=== PATIENT | female | born 1980 | race Caucasian/White ===

== ENCOUNTER 2019-06-06 16:43 | Emergency (ER) | payer OTHER ==
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
[2019-06-06] MEDS ORDERED: Ondansetron 4 MG/2 ML SDV IVPUSH ONE (17:10)
[2019-06-06] MEDS ORDERED: Ketorolac 30 MG/ML SDV IVPUSH SCH (17:15)
[2019-06-06] MEDS ORDERED: Dextrose 5%-0.9% NaCl 1,000 ML IV SCH (17:15)
--- NOTE | 2019-06-06 17:46 | CT ---
CT cervical spine Technique: Multiple axial sections were obtained from above C1 inferiorly through the T1-T2 disc. Reconstructed sagittal and coronal images were reviewed. Comparison: No prior CT cervical spine study is available, previous cervical spine plain film exam of 10/06/12 is available. Findings: Fairly severe disc space narrowing is noted C5-C6. Posterior osteophytes are noted at C5-C6 as well as degenerative spurring on both sides of the uncovertebral joints at C5-C6. Lesser disc space narrowing at C4-C5 with smaller posterior osteophytes and minimal spurring within the uncovertebral joints at C4-C5. Other disc spaces are maintained. Vertebral body heights are maintained. Mild bilateral neural foraminal stenosis is s noted at C5-C6. Other neural foramina are patent. No central canal stenosis is seen. No fracture is appreciated. No abnormal subluxation is seen. Impression: 1. Mild degenerative change. No acute abnormality is appreciated on CT study of the cervical spine. Diagnostic code #2
--- NOTE | 2019-06-06 17:50 | CT ---
Head CT Technique: Multiple axial sections through the brain were obtained. Intravenous contrast was not utilized. Comparison: No prior intracranial imaging is available. Findings: Ventricles along with basal cisterns and sulci over the convexities appear within normal limits for the patient's age. No abnormal parenchymal densities are seen. No evidence of intracranial hemorrhage. No midline shift or mass effect is seen. Bone window settings were reviewed which showed the visualized mastoid sinuses and paranasal sinuses to appear clear. No acute calvarial abnormality is seen. Impression: 1. Nothing acute is appreciated on noncontrast head CT exam. Diagnostic code #1
--- NOTE | 2019-06-06 17:52 | CT ---
CT thoracic spine Technique: Multiple axial sections through the thoracic spine were obtained. Reconstructed sagittal and coronal images were reviewed. Findings: Vertebral body heights and disc spaces are preserved. Very minimal endplate osteophytes are seen within the mid thoracic spine. No fracture is seen. No abnormal subluxation is noted. No bony central or bony neural foraminal stenosis is seen. No traumatic disc herniation is identified. Impression: 1. Minimal degenerative change. Nothing acute is seen on CT study of the thoracic spine. Diagnostic code #1
--- NOTE | 2019-06-06 17:55 | CT ---
CT lumbar spine Technique: Multiple axial sections through the lumbar spine were obtained. Reconstructed sagittal and coronal images were reviewed. Comparison: No prior lumbar spine imaging. Findings: Mild retrolisthesis is seen at L4-L5 with slight posterior spurring into the right neural foramina. Vacuum disc phenomena is noted within the L4-L5 disc. Posterior disc space narrowing is noted at L2-3 and L3-L4 as well as L4-L5. Detached transverse process of L1 is noted on the right side. 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 No vertebral body fracture or posterior arch fracture is seen. No disc herniation is seen. No abnormal subluxation is seen. Minimal scoliosis is noted. Impression: 1. Mild degenerative change and minimal scoliosis. Nothing acute is appreciated on CT study of the thoracolumbar spine. Diagnostic code #2
[2019-06-06 18:47] VITALS: BP 118/82; PULSE 63
== END 2019-06-06 18:45 | disposition home or self-care (01) ==
LOC: JD.ED 16:43
DX: S13.9XXA Sprain of joints and ligaments of unspecified parts of neck, initial encounter (principal); S39.012A Strain of muscle, fascia and tendon of lower back, initial encounter; G44.209 Tension-type headache, unspecified, not intractable; F32.9 Major depressive disorder, single episode, unspecified; Z79.899 Other long term (current) drug therapy; V54.5XXA Driver of pick-up truck or van injured in collision with heavy transport vehicle or bus in traffic accident, initial encounter; Y92.410 Unspecified street and highway as the place of occurrence of the external cause
CPT/HCPCS: 70450; 70450-26; 72125; 72125-26; 72128; 72128-26; 72131; 72131-26; 99284-25

== ENCOUNTER 2020-05-18 06:41 | Day surgery (SDC) | payer MEDICAID, OTHER ==
[2020-05-18] MEDS ORDERED: Lidocaine 1%/Sod Bicarbonate in NS 8.4% 1 ML Syringe IDERM PRN (07:00)
[2020-05-18] MEDS ORDERED: Sodium Chloride 0.9% 10 ML Syringe FLUSH PRN (07:00)
[2020-05-18] MEDS: Lactated Ringers 1,000 ML IV SCH ×2 (07:02→09:46)
[2020-05-18] MEDS ORDERED: Lidocaine 1% with EPINEPHrine 1:100,000 20 ML MDV ONE (07:09)
[2020-05-18] MEDS ORDERED: Sodium Chloride 0.9% 50 ML SDV ONE (07:09)
--- NOTE | 2020-05-18 07:30 | PCM.PREANE ---
Preanesthetic Assessment - Procedure Proposed Procedure: total vaginal hysterectomy with bilateral saloingectomy - Anesthesia/Transfusion/Family Hx Anesthesia History: No Prior Anesthesia Family History of Anesthesia Reaction: No Transfusion History: No Prior Transfusion(s) Intubation History: Unknown - Review of Systems General: No Symptoms Pulmonary: Other (rescue inhaler for bronchitis with sinuses - used inhaler last week ) Cardiovascular: No Symptoms Gastrointestinal: No Symptoms Neurological: Paresthesia (forearms numbness ), Other (migraine history ) Other: Reports: Depression, Anxiety - Physical Assessment NPO Status Date: 05/17/20 NPO Status Time: 22:00 Vital Signs: Last Vital Signs Temp 36.1 C 05/18/20 06:45 Pulse 64 05/18/20 06:45 Resp 16 05/18/20 06:45 BP 115/76 05/18/20 06:45 Pulse Ox 96 05/18/20 06:45 Height: 1.7 m Weight: 83.461 kg ASA Class: 2 Mental Status: Alert & Oriented x3 Airway Class: Mallampati = 1 Dentition: Reports: Normal Dentition Thyro-Mental Finger Breadths: 3 Mouth Opening Finger Breadths: 4 ROM/Head Extension: Full Lungs: Clear to Auscultation, Normal Respiratory Effort Cardiovascular: Regular Rate (4), Regular Rhythm - Lab Values: Laboratory Last Values WBC 5.17 K/mm3 (3.98-10.04) 05/13/20 11:25 RBC 4.53 M/mm3 (3.98-5.22) 05/13/20 11:25 Hgb 14.0 gm/dl (11.2-15.7) 05/13/20 11:25 Hct 42.9 % (34.1-44.9) 05/13/20 11:25 MCV 94.7 fl (79.4-94.8) 05/13/20 11:25 MCH 30.9 pg (25.6-32.2) 05/13/20 11:25 MCHC 32.6 g/dl (32.2-35.5) 05/13/20 11:25 RDW Std Deviation 43.7 fL (36.4-46.3) 05/13/20 11:25 Plt Count 287 K/mm3 (182-369) 05/13/20 11:25 MPV 9.4 fl (9.4-12.3) 05/13/20 11:25 Neut % (Auto) 56.8 % (34.0-71.1) 05/13/20 11:25 Lymph % (Auto) 30.8 % (19.3-51.7) 05/13/20 11:25 [place] % (Auto) 9.1 % (4.7-12.5) 05/13/20 11:25 Eos % (Auto) 2.7 (0.7-5.8) 05/13/20 11:25 Baso % (Auto) 0.6 % (0.1-1.2) 05/13/20 11:25 Neut # (Auto) 2.94 K/mm3 (1.56-6.13) 05/13/20 11:25 Lymph # (Auto) 1.59 K/mm3 (1.18-3.74) 05/13/20 11:25 [place] # (Auto) 0.47 K/mm3 (0.24-0.36) H 05/13/20 11:25 Eos # (Auto) 0.14 K/mm3 (0.04-0.36) 05/13/20 11:25 Baso # (Auto) 0.03 K/mm3 (0.01-0.08) 05/13/20 11:25 Creatinine 0.9 mg/dL (0.55-1.02) 05/13/20 11:25 Est Cr Clr Drug Dosing TNP 05/13/20 11:25 Estimated GFR (MDRD) > 60 mL/min (>60) 05/13/20 11:25 Urine Color Yellow (Yellow) 05/13/20 11:25 Urine Appearance Clear (Clear) 05/13/20 11:25 Urine pH 6.0 (5.0-8.0) 05/13/20 11:25 Ur Specific [place] > or = 1.030 (1.005-1.030) 05/13/20 11:25 Urine Protein Negative (Negative) 05/13/20 11:25 Urine Glucose (UA) Negative (Negative) 05/13/20 11:25 Urine Ketones Negative (Negative) 05/13/20 11:25 Urine Occult Blood Negative (Negative) 05/13/20 11:25 Urine Nitrite Negative (Negative) 05/13/20 11:25 Urine Bilirubin Negative (Negative) 05/13/20 11:25 Urine Urobilinogen 0.2 (0.2-1.0) 05/13/20 11:25 Ur Leukocyte Esterase Negative (Negative) 05/13/20 11:25 Urine RBC 0-5 /hpf (0-5) 05/13/20 11:25 Urine WBC 0-5 /hpf (0-5) 05/13/20 11:25 Ur Squamous Epith Cells 0-5 /hpf (0-5) 05/13/20 11:25 Urine Bacteria Few /hpf (FEW) 05/13/20 11:25 Urine Mucus Few /hpf (FEW) 05/13/20 11:25 Urine HCG, Qual Negative (NEGATIVE) 05/13/20 11:25 COVID-19 (GÉNESIS) Negative (NEGATIVE) 05/18/20 06:43 - Allergies Allergies/Adverse Reactions: Allergies Allergy/AdvReac Type Severity Reaction Status Date / Time acetaminophen [From Percocet] Allergy Itching Verified 05/18/20 07:13 oxycodone [From Percocet] Allergy Itching Verified 05/18/20 07:13 - Blood Blood Available: No - Anesthesia Plan Pre-Op Medication Ordered: None - Acknowledgements Anesthesia Type Planned: General Anesthesia Pt an Appropriate Candidate for the Planned Anesthesia: Yes Alternatives and Risks of Anesthesia Discussed w Pt/Guardian: Yes Pt/Guardian Understands and Agrees with Anesthesia Plan: Yes PreAnesthesia Questionnaire HEENT History: Reports: Sinusitis Other HEENT History: TMJ Cardiovascular History: Other Cardiovascular History: palpitations Other Genitourinary History: dysuria, genital herpes 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 OB/BYN History: dysmenorrhea, abnormal uterine bleeding, menorrhagia Musculoskeletal History: Reports: Back Pain, Chronic, Neck Pain, Chronic Neurological History: Reports: Migraines Psychiatric History: Reports: Anxiety, Depression Other Endocrine/Metabolic History: abnormal TSH Other Dermatologic History: atopic dermatitis - SUBSTANCE USE Smoking Status *Q: Never Smoker Tobacco Use Within Last Twelve Months: No Recreational Drug Use History: No - HOME MEDS Home Medications: Home Meds Albuterol Sulfate [Albuterol Sulfate Hfa] 1 puff IH ASDIRECTED PRN 05/14/20 [History] Doxycycline [Vibramycin] 100 mg PO BID 05/14/20 [History] Gabapentin [Neurontin] 300 mg PO DAILY 05/14/20 [History] Ipratropium [place] 2 spray NASBOTH TID 05/14/20 [History] Sertraline [Zoloft] 200 mg PO DAILY 05/14/20 [History] Topiramate [Trokendi Xr] 50 mg PO DAILY 05/14/20 [History] clonazePAM [Clonazepam] 1.5 mg PO DAILY 05/14/20 [History] - CURRENT (IN HOUSE) MEDS Current Meds: Current Medications Lactated Ringer's (Ringers, Lactated) 1,000 mls @ 125 mls/hr IV ASDIRECTED TRAY Stop: 05/18/20 23:00 Last Admin: 05/18/20 07:02 Dose: 125 mls/hr Documented by: Lidocaine/Sodium Bicarbonate (Buffered Lidocaine 1% In Ns 8.4%) 0.25 ml IDERM ONETIME PRN PRN Reason: Prior to IV Start Stop: 05/18/20 18:00 Last Admin: 05/18/20 07:02 Dose: 0.25 ml Documented by: Sodium Chloride (Saline Flush) 10 ml FLUSH ASDIRECTED PRN PRN Reason: Keep Vein Open Stop: 05/18/20 18:00 Discontinued Medications Lidocaine/Epinephrine (Xylocaine 1% With Epinephrine 1:100,000) Confirm Administered Dose 20 ml .ROUTE .STK-MED ONE Stop: 05/18/20 07:10 Sodium Chloride (Normal Saline) Confirm Administered Dose 50 ml .ROUTE .STK-MED ONE Stop: 05/18/20 07:10
[2020-05-18] MEDS ORDERED: fentaNYL 100 MCG/2 ML SDV IVPUSH PRN (07:32)
[2020-05-18] MEDS ORDERED: Scopolamine 1.5 MG Transdermal Patch TRDERM ONE (07:32)
[2020-05-18] MEDS ORDERED: Ondansetron 4 MG/2 ML SDV IVPUSH PRN (07:32)
[2020-05-18] MEDS ORDERED: Midazolam 1 MG/ML 2 ML SDV ONE (07:38)
[2020-05-18] MEDS ORDERED: Propofol 200 MG/20 ML SDV ONE (07:38)
[2020-05-18] MEDS ORDERED: fentaNYL 250 MCG/5 ML SDV ONE (07:39)
[2020-05-18] MEDS ORDERED: Lidocaine 1% 4 ML ONE (07:40)
[2020-05-18] MEDS ORDERED: Rocuronium 50 MG/5 ML Vial ONE (07:41)
[2020-05-18] MEDS ORDERED: ceFAZolin 1 GM Vial ONE (08:09)
[2020-05-18] MEDS ORDERED: HYDROmorphone 0.5 MG/0.5 ML Syringe ONE (08:11)
[2020-05-18] MEDS ORDERED: Ketamine 500 mg/10 ML MDV ONE ×2 (08:12→08:13)
[2020-05-18] MEDS ORDERED: Lactated Ringers 1,000 ML ONE (08:21)
[2020-05-18] MEDS ORDERED: Albuterol 6.7 GM Inhaler INH ONE (08:36)
[2020-05-18] MEDS ORDERED: Dexamethasone 4 MG/ML 5 ML MDV ONE (08:41)
[2020-05-18] MEDS ORDERED: Ondansetron 4 MG/2 ML SDV ONE (08:41)
[2020-05-18] MEDS ORDERED: Ketorolac 15 MG/ML SDV ONE (08:55)
[2020-05-18] MEDS ORDERED: Albuterol 6.7 GM Inhaler INH PRN (09:03)
[2020-05-18] MEDS ORDERED: Ibuprofen 600 MG Tab PO PRN (09:07)
--- NOTE | 2020-05-18 09:12 | PCM.OPNOTE ---
- General Post-Op/Procedure Note Date of Surgery/Procedure: 05/18/20 Operative Procedure(s): Total vaginal hysterectomy with bilateral salpingectomy Findings: Uterus, fallopian tubes and ovaries appeared to be generally within normal limits. Pre Op Diagnosis: 1. Menorrhagia. 2. Dysmenorrhea. 3. Uterine fibroid Post-Op Diagnosis: Same Anesthesia Technique: General ET Tube Other Anesthesia Type: Lidocaine 1% with cc local Primary Surgeon: Humphrey Spencer Secondary Surgeon: Shaun Ramey Anesthesia Provider: Any Benitez Drywall Hanger Helper: Anali Tejada Reason Drywall Hanger Helper Was Necessary: Retraction, assistance, patient safety, quality of care. Pathology: Uterus, tubes in one specimen container Fluid Replacement, Intraop: 1,500 Output, Urine Amount: 65 EBL in mLs: 50 Drain/Tube Comments:: Red rubber catheter used to drain bladder prior to surgery. Complications: None Condition: Good Free Text/Narrative:: Surgery duration: 36 minutes Procedure: The patient was placed in supine position on the operating table. General endotracheal anesthesia was accomplished. After positioning, and adequate prep and drape, the procedure was then performed. Letter was emptied with a red rubber catheter. Sterile speculum was placed in the vagina and cervix was visualized. Cervix was injected with lidocaine quarter percent with epinephrine-20 mL used. A full circumference incision was made in the cervical epithelium. The bladder was pushed well back off cervix. Posterior cul-de-sac was then entered sharply without problems. Left uterosacral was crossclamped with a Enseal vessel closure system. The left uterosacral and then the right uterosacral ligament pedicles were developed using the Enseal system. The anterior cul-de-sac was then entered without problems and the uterine vasculature, cardinal ligament and broad ligament then developed using Enseal vessel closure system. The uterus was inverted at this time and upper broad ligament fallopian tube pedicles were crossclamped with Estrada clamps. Specimen was totally removed. Both these pedicles were then secured with Enseal vessel closure system. Left and right fallopian tube was normal in appearance.. Using Enseal vessel closure system each of the tubes was then removed and sent with the specimen. The patient was found to be hemostatically intact at this time. Vaginal cuff was sutured for hemostatic reasons with a running locked suture of 0 Monocryl from the 2 o'clock position to the 10 o'clock position posteriorly. Vaginal cuff was then closed from right to left side with a running locked suture of 0 Monocryl. Patient was returned to supine position and awakened from general endotracheal anesthesia. She tolerated the procedure and left the operating room in satisfactory condition.
--- NOTE | 2020-05-18 09:15 | PCM.POSTAN ---
POST ANESTHESIA ASSESSMENT - MENTAL STATUS Mental Status: Other (drowsy ) - VITAL SIGNS Vital Signs: Last Vital Signs Temp 36.1 C 05/18/20 06:45 Pulse 64 05/18/20 06:45 Resp 16 05/18/20 06:45 BP 115/76 05/18/20 06:45 Pulse Ox 96 05/18/20 06:45 - RESPIRATORY Respiratory Status: Respiratory Rate WNL, Airway Patent, O2 Saturation Stable - CARDIOVASCULAR CV Status: Pulse Rate WNL, Blood Pressure Stable - GASTROINTESTINAL GI Status: No Symptoms - POST OP HYDRATION Hydration Status: Adequate & Stable
[2020-05-18] MEDS ORDERED: HYDROmorphone 0.5 MG/0.5 ML Syringe IVPUSH PRN (09:16)
[2020-05-18] MEDS ORDERED: diphenhydrAMINE 50 MG/ML SDV IVPUSH PRN (09:19)
[2020-05-18] MEDS: traMADol 50 MG Tab PO PRN ×2 (10:01→11:22)
--- NOTE | 2020-05-18 10:19 | PCM48HPAN ---
Post Anesthesia Note - EVALUATION WITHIN 48HRS OF ANESTHETIC Vital Signs in Normal Range: Yes Patient Participated in Evaluation: Yes Respiratory Function Stable: Yes Airway Patent: Yes Cardiovascular Function Stable: Yes Hydration Status Stable: Yes Pain Control Satisfactory: Yes (still being treated by recovery room ) Nausea and Vomiting Control Satisfactory: Yes Mental Status Recovered: Yes Vital Signs: Last Vital Signs Temp 36.3 C 05/18/20 09:50 Pulse 67 05/18/20 09:50 Resp 11 L 05/18/20 09:50 BP 105/67 05/18/20 09:50 Pulse Ox 95 05/18/20 09:55
[2020-05-18] MEDS ORDERED: traMADol 50 MG Tab PO ONE (11:12)
[2020-05-18 13:11] VITALS: BP 107/62; PULSE 66
[2020-05-18] MEDS ORDERED: Non-Formulary Medication 1 Each (Ipratropium Bromide [Ipratropium Bromide] 2 SPRAY) NASBOTH SCH (15:00)
[2020-05-19] MEDS ORDERED: ClonazePAM 1 MG Tab PO SCH (09:00)
[2020-05-19] MEDS ORDERED: Gabapentin 300 MG Cap PO SCH (09:00)
[2020-05-19] MEDS ORDERED: Topiramate 25 MG Tab PO SCH (09:00)
[2020-05-19] MEDS ORDERED: Sertraline 50 MG Tab PO SCH (09:00)
== END 2020-05-18 13:04 | disposition home or self-care (01) ==
LOC: JD.SDS 06:41
PROVIDERS: ATTEND Obstetrics & Gynecology
DX: N80.0 Endometriosis of uterus (principal); D25.9 Leiomyoma of uterus, unspecified; F32.9 Major depressive disorder, single episode, unspecified; F41.9 Anxiety disorder, unspecified; Z88.6 Allergy status to analgesic agent; Z79.899 Other long term (current) drug therapy; Z20.828 Contact with and (suspected) exposure to other viral communicable diseases; Z01.812 Encounter for preprocedural laboratory examination; Z87.891 Personal history of nicotine dependence
CPT/HCPCS: 36415; 58262; 81001; 81025; 82565; 85025; 86850; 86900; 86901; 87635; A9270; J0690; J1100; J1170; J1885; J2001; J2250; J2405; J2704; J2710; J3010; J7120; 00944; U0002

== ENCOUNTER 2021-02-03 07:56 | Day surgery (SDC) | payer OTHER ==
[~2021-02-03 07:56] MED LIST: EPINEPHrine 1 MG/ML 30 ML MDV IRR SCH; EPINEPHrine 1 MG/ML SDV ONE; Lactated Ringers 1,000 ML IV SCH; Lidocaine 1%/Sod Bicarbonate in NS 8.4% 1 ML Syringe IDERM PRN; Ropivacaine 0.5% 5 MG/ML 30 ML SDV ONE; Sodium Chloride 0.9% 10 ML Syringe FLUSH PRN
--- NOTE | 2021-02-03 08:27 | PCM.PREANE ---
Preanesthetic Assessment - Procedure Proposed Procedure: Right shoulder video arthroscopy, biceps tenotomy and labral - Anesthesia/Transfusion/Family Hx Anesthesia History: No Prior Anesthesia Family History of Anesthesia Reaction: No Transfusion History: No Prior Transfusion(s) Intubation History: Unknown - Review of Systems General: Other (Post nasal drip chronically) Pulmonary: No Symptoms Cardiovascular: No Symptoms Gastrointestinal: No Symptoms Neurological: Other (Migraine headaches) Other: Reports: Easy Bruising, Depression, Anxiety - Physical Assessment NPO Status Date: 02/03/21 NPO Status Time: 18:00 Vital Signs: 115/80 72 96% 16 99.6 Weight: 87 kg ASA Class: 2 Mental Status: Alert & Oriented x3 Dentition: Reports: Normal Dentition Thyro-Mental Finger Breadths: 3 Mouth Opening Finger Breadths: 2 ROM/Head Extension: Full (Patient has some neck discomfort at times) Lungs: Clear to Auscultation, Normal Respiratory Effort Cardiovascular: Regular Rate, Regular Rhythm - Lab Values: Labs reviewed and acceptable to proceed - Allergies Allergies/Adverse Reactions: Allergies Allergy/AdvReac Type Severity Reaction Status Date / Time No Known Allergies Allergy Verified 02/02/21 15:08 - Blood Blood Available: No Product(s) Available: None - Anesthesia Plan Pre-Op Medication Ordered: None - Acknowledgements Anesthesia Type Planned: General Anesthesia, Regional Block Pt an Appropriate Candidate for the Planned Anesthesia: Yes Alternatives and Risks of Anesthesia Discussed w Pt/Guardian: Yes Pt/Guardian Understands and Agrees with Anesthesia Plan: Yes PreAnesthesia Questionnaire HEENT History: Reports: Sinusitis Other HEENT History: TMJ, nasal septum deviation, nasal turnbinate hypertrophy, post nasal drip Other Cardiovascular History: palpitations and bradycardia (during ) Respiratory History: Reports: Asthma (Well controlled), SOB (with anxiety) Gastrointestinal History: Reports: GERD (Well controlled) Other Genitourinary History: dysuria, genital herpes 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: ( in the past, has had hysterectomy) Other OB/BYN History: dysmenorrhea, abnormal uterine bleeding, menorrhagia Musculoskeletal History: Reports: Back Pain, Chronic, Neck Pain, Chronic Neurological History: Reports: Migraines Psychiatric History: Reports: Anxiety, Depression, OCD, Panic Attack Other Endocrine/Metabolic History: abnormal TSH Hematologic History: Immunologic History: Reports: None Oncologic (Cancer) History: Reports: None Dermatologic History: Reports: None Other Dermatologic History: atopic dermatitis - Infectious Disease History Infectious Disease History: Reports: None - Past Surgical History Head Surgeries/Procedures: Reports: None Cardiovascular Surgical History: Reports: None GI Surgical History: Reports: None Female Surgical History: Reports: Hysterectomy Neurological Surgical History: Reports: None Musculoskeletal Surgical History: Reports: None Oncologic Surgical History: Reports: None - SUBSTANCE USE Tobacco Use Status *Q: Former Tobacco User (13 years ago) Tobacco Use Within Last Twelve Months: No Second Hand Smoke Exposure: No Days Per Week of Alcohol Use: 3 Number of Drinks Per Day: 3 Total Drinks Per Week: 9 Recreational Drug Use History: No - HOME MEDS Home Medications: Home Meds Albuterol Sulfate [Albuterol Sulfate Hfa] 1 puff IH ASDIRECTED PRN 05/14/20 [History] Gabapentin [Neurontin] 300 mg PO BEDTIME 05/14/20 [History] Ipratropium [place] 2 spray NASBOTH TID 05/14/20 [History] Sertraline [Zoloft] 200 mg PO DAILY 05/14/20 [History] clonazePAM [Clonazepam] 1.5 mg PO QPM 05/14/20 [History] clonazePAM [Clonazepam] 1 mg PO QAM 02/02/21 [History] Cyclobenzaprine [Flexeril] 10 mg PO BID PRN #20 tab 02/03/21 [Rx] - CURRENT (IN HOUSE) MEDS Current Meds: Current Medications Epinephrine HCl (Epinephrine 1 Mg/Ml 30 Ml Mdv) 3 mg IRR ONETIME TRAY Stop: 02/03/21 12:00 Lactated Ringer's (Ringers, Lactated) 1,000 mls @ 125 mls/hr IV ASDIRECTED TRAY Stop: 02/03/21 23:00 Lidocaine/Sodium Bicarbonate (Lidocaine 1%/Sod Bicarbonate In Ns 8.4% 1 Ml Syringe) 0.25 ml IDERM ONETIME PRN PRN Reason: Prior to IV Start Stop: 02/03/21 18:00 Sodium Chloride (Sodium Chloride 0.9% 10 Ml Syringe) 10 ml FLUSH ASDIRECTED PRN PRN Reason: Keep Vein Open Stop: 02/03/21 18:00 Discontinued Medications Epinephrine HCl (Epinephrine 1 Mg/Ml Sdv) Confirm Administered Dose 1 mg .ROUTE .STK-MED ONE Stop: 02/03/21 06:56 Ropivacaine (Ropivacaine 0.5% 5 Mg/Ml 30 Ml Sdv) Confirm Administered Dose 30 ml .ROUTE .[facility] Stop: 02/03/21 06:56
[2021-02-03] MEDS ORDERED: Propofol 200 MG/20 ML SDV ONE ×2 (08:32→08:35)
[2021-02-03] MEDS ORDERED: fentaNYL 250 MCG/5 ML SDV ONE (08:32)
[2021-02-03] MEDS ORDERED: ceFAZolin 1 GM Vial ONE (08:35)
[2021-02-03] MEDS ORDERED: Midazolam 1 MG/ML 2 ML SDV ONE ×2 (08:35→08:45)
[2021-02-03] MEDS ORDERED: Lidocaine 1% 4 ML ONE (08:35)
[2021-02-03] MEDS ORDERED: Lactated Ringers 1,000 ML ONE (08:35)
[2021-02-03] MEDS ORDERED: Ondansetron 4 MG/2 ML SDV ONE (08:35)
[2021-02-03] MEDS ORDERED: Ketorolac 30 MG/ML SDV ONE (08:35)
[2021-02-03] MEDS ORDERED: Ketorolac 15 MG/ML SDV ONE (08:35)
[2021-02-03] MEDS ORDERED: Dexamethasone 4 MG/ML 5 ML MDV ONE (08:35)
[2021-02-03] MEDS ORDERED: Lidocaine 1% 2 ML ONE (08:46)
[2021-02-03] MEDS ORDERED: HYDROmorphone 0.5 MG/0.5 ML Syringe IVPUSH PRN (11:14)
[2021-02-03] MEDS ORDERED: fentaNYL 100 MCG/2 ML SDV IVPUSH PRN (11:14)
--- NOTE | 2021-02-03 11:16 | PCM.POSTAN ---
POST ANESTHESIA ASSESSMENT - MENTAL STATUS Mental Status: Alert (Drowsy), Oriented - VITAL SIGNS Vital Signs: Last Vital Signs Temp 98.1 F 02/03/21 11:14 Pulse 73 02/03/21 11:14 Resp 16 02/03/21 11:14 BP 134/67 02/03/21 11:14 Pulse Ox 100 02/03/21 11:14 - RESPIRATORY Respiratory Status: Respiratory Rate WNL, Airway Patent, O2 Saturation Stable - CARDIOVASCULAR CV Status: Pulse Rate WNL, Blood Pressure Stable - GASTROINTESTINAL GI Status: No Symptoms - PAIN Pain Score: 0 - POST OP HYDRATION Hydration Status: Adequate & Stable
--- NOTE | 2021-02-03 11:23 | PCM.SN.2 ---
- Free Text/Narrative Note: Date: 02/03/2021 Time out: 912 Start time: 912 End time: [address] right interscalene block with ultrasound guidance and nerve stimulator for post op pain control per Dr. Naylor and patient. Preop diagnosis right shoulder pain. Procedure is right shoulder arthrosocpy Informed consent obtained. Monitors and O2 placed at 2 l per n/c. Versed 4 mg and Fentanyl 100 mcg given IV total. Patient awake and talking during procedure. Right neck and clavicle area prepped with chlorprep. Sterile gloves, hat and mask worn. US probe with sterile sleeve placed midclavicular with ID of brachial plexus and subclavian artery. Brachial plexus followed cephalad to level of cricoid. Lidocaine 1% local anesthetic injected prior to block placement. 22 g 2 inch stimplex needle advanced with US guidance to brachial plexus. Positive forearm response at .4mA with nerve stimulator. Ceased with saline injection. Ropivacaine 0.5% with epi 1:200,000 injected in increments of 5 ml with negative aspiration before each injection to a total of 30 ml. Good spread of local anesthetic seen on US. Patient tolerated procedure well. Vitals stable with no complaints.
--- NOTE | 2021-02-03 11:25 | PCM.OPNOTE ---
- General Post-Op/Procedure Note Date of Surgery/Procedure: 02/03/21 Operative Procedure(s): right shoulder video arthroscopy with biceps tenotomy, SLAP repair, and extensive debridement Pre Op Diagnosis: right shoulder biceps tendinopathy and SLAP tear Post-Op Diagnosis: Same Anesthesia Technique: General LMA, Regional Block Primary Surgeon: Saul Naylor Anesthesia Provider: Libby Morton Photographic Intelligence Officer: Judy Sharp EBDeon in mLs: 5 Complications: None Condition: Good
--- NOTE | 2021-02-03 13:07 | PCM48HPAN ---
Post Anesthesia Note - EVALUATION WITHIN 48HRS OF ANESTHETIC Vital Signs in Normal Range: Yes Patient Participated in Evaluation: Yes Respiratory Function Stable: Yes Airway Patent: Yes Cardiovascular Function Stable: Yes Hydration Status Stable: Yes Pain Control Satisfactory: Yes Nausea and Vomiting Control Satisfactory: Yes Mental Status Recovered: Yes Vital Signs: Last Vital Signs Temp 98.4 F 02/03/21 11:45 Pulse 83 02/03/21 11:45 Resp 13 02/03/21 11:45 BP 121/70 02/03/21 11:45 Pulse Ox 98 02/03/21 11:45 Vital signs at 1305: BP 124/80 HR 68 Sats 96% on RA RR 16
[2021-02-03 14:10] VITALS: BP 125/88; PULSE 65
--- NOTE | 2021-02-14 13:03 | OR ---
DATE OF OPERATION: 02/03/2021 SURGEON: Saul Naylor MD OPERATION PERFORMED: Right shoulder video arthroscopy, biceps tenotomy, superior labrum anterior and posterior repair, and extensive debridement. PREOPERATIVE DIAGNOSIS: Right shoulder biceps tendinopathy and superior labrum anterior and posterior tear. POSTOPERATIVE DIAGNOSIS: Right shoulder biceps tendinopathy and superior labrum anterior and posterior tear. ANESTHESIA: General LMA with regional interscalene block. ANESTHESIA PROVIDER: Libby Morton. ROUTE RETURNER: Judy Sharp PA-C ESTIMATED BLOOD LOSS: Less than 5 mL. COMPLICATIONS: None. CONDITION: Stable. DESCRIPTION OF PROCEDURE: The patient was identified in the preoperative holding area. Proper site was marked and identified by the surgeon. The patient was taken back to the operative theater where after adequate anesthesia, the patient was placed in the lazy right lateral decubitus position. Wedge was placed posteriorly. Right shoulder was then sterilely prepped and draped in the usual sterile fashion. OR time-out was performed. The patient received 2 g IV Ancef. 12 pounds of traction was applied to the right upper extremity. At this time, a standard posterior incision was made. Scope trocar was introduced. The patient was noted to have a significant biceps tendinopathy as well as a small SLAP tear just near the insertion of the biceps tendon region. There was no anterior instability noted. No signs of chondromalacia. Undersurface of the rotator cuff was intact. Anterior portal was then created from an outside-in technique. At this time, a biceps tenotomy was performed as well as an extensive debridement of the extreme synovitis near the bicipital region. At this time, roughened edge of the superior border of the attachment of the previous biceps for the labrum had a 2.7 mm Arthrex PushLock anchor for repair of the small unstable SLAP tear. At this time, attention was turned subacromially. I did perform an extensive debridement of the subacromial space and bursitis. The patient had no rotator cuff tear and no signs of impingement with the CA ligament intact. At this time, excess saline was drained from the shoulder. 3- 0 nylon suture was used for closure of the skin. The patient was placed in a pillow sling and sent to the PACU in stable condition. MMODAL /[id number]
== END 2021-02-03 13:34 | disposition home or self-care (01) ==
LOC: JD.SDS 07:56
PROVIDERS: ATTEND Orthopaedic Surgery
DX: S43.431A Superior glenoid labrum lesion of right shoulder, initial encounter (principal); M75.21 Bicipital tendinitis, right shoulder; G89.29 Other chronic pain; M65.811 Other synovitis and tenosynovitis, right shoulder; G89.18 Other acute postprocedural pain; Z79.899 Other long term (current) drug therapy; Z98.890 Other specified postprocedural states; Z87.891 Personal history of nicotine dependence
CPT/HCPCS: 29807; C1713; J0171; J0690; J1100; J1885; J2250; J2405; J2704; J2795; J3010; J7120; 01630; 64415; 76942

== ENCOUNTER 2021-06-01 15:49 | Emergency (ER) | payer MEDICAID, OTHER ==
[2021-06-01 16:22] VITALS: BP 133/93; PULSE 66
[2021-06-01] MEDS ORDERED: Acetaminophen/HYDROcodone 325-5 MG Tab PO ONE (17:09)
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
--- NOTE | 2021-06-02 06:53 | CR ---
Right shoulder: 3 views of the right shoulder were obtained. Comparison: No prior shoulder study is available. Glenohumeral joint and acromioclavicular joint is within normal limits. No acute fracture, dislocation or other bony abnormality is appreciated. Impression: 1. Nothing acute is appreciated on 3-view right shoulder study. Diagnostic code #1
--- NOTE | 2021-06-02 06:53 | CR ---
Right wrist: 4 views of the right wrist were obtained. Comparison: Prior right wrist study of 02/24/20. Joint spaces are preserved. No fracture, dislocation or other bony abnormality is appreciated. Impression: 1. Nothing acute is appreciated on right wrist exam. 2. No change from previous study is seen. Diagnostic code #1
== END 2021-06-01 17:33 | disposition home or self-care (01) ==
LOC: JD.ED 15:49
DX: S63.501A Unspecified sprain of right wrist, initial encounter (principal); S43.401A Unspecified sprain of right shoulder joint, initial encounter; J45.909 Unspecified asthma, uncomplicated; Z72.0 Tobacco use; X50.1XXA Overexertion from prolonged static or awkward postures, initial encounter
CPT/HCPCS: 73030-26-RT; 73030-RT; 73110-26-RT; 73110-RT; 99283

== ENCOUNTER 2021-06-27 22:38 | Emergency (ER) | payer BC, OTHER ==
[2021-06-27 23:00] VITALS: BP 128/89; PULSE 81
[2021-06-28] MEDS ORDERED: Lactated Ringers 1,000 ML IV ONE (00:38)
[2021-06-28] MEDS ORDERED: Ketorolac 15 MG/ML SDV IVPUSH ONE (00:38)
[2021-06-28] MEDS ORDERED: Metoclopramide 10 MG/2 ML SDV IVPUSH ONE (00:38)
[2021-06-28] MEDS ORDERED: diphenhydrAMINE 50 MG/ML SDV IVPUSH ONE (00:39)
--- NOTE | 2021-06-28 00:44 | EDM.PDOC ---
ED HPI GENERAL MEDICAL PROBLEM - General Chief Complaint: Headache Stated Complaint: MIGRAINE/COUGH Time Seen by Provider: 06/28/21 00:30 Source of Information: Reports: Patient History Limitations: Reports: No Limitations - History of Present Illness INITIAL COMMENTS - FREE TEXT/NARRATIVE: Patient is a 40-year-old female presenting to the emergency room with a chief complaint of headache. Patient reports 3 to 4 days of left-sided headache. Patient reports associated photophobia and nausea. Patient reports history of migraines but states this is significantly more severe. Patient states on Sunday, she experienced some fatigue and body aches. She otherwise feels some left ear pain and soreness in her throat with pain during swelling. Patient states she is taking everything [id number] that she can headaches does not seem to be getting better. 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 She states there seems to be a lot of Covid there. Left Headache Pain Score (Numeric/FACES): 9 - Related Data Allergies Allergy/AdvReac Type Severity Reaction Status Date / Time No Known Allergies Allergy Verified 06/01/21 16:17 Home Meds: Home Meds Albuterol Sulfate [Albuterol Sulfate Hfa] 1 puff IH ASDIRECTED PRN 05/14/20 [History] Gabapentin [Neurontin] 300 mg PO BEDTIME 05/14/20 [History] Sertraline [Zoloft] 200 mg PO DAILY 05/14/20 [History] clonazePAM [Clonazepam] 1.5 mg PO QPM 05/14/20 [History] clonazePAM [Clonazepam] 1 mg PO QAM 02/02/21 [History] Hydrocodone/Acetaminophen [HYDROcodone-Acetaminophen 5-325 MG] 1 each PO Q6HR PRN #14 tab 06/01/21 [Rx] Past Medical History HEENT History: Reports: Sinusitis Other HEENT History: TMJ, nasal septum deviation, nasal turnbinate hypertrophy, post nasal drip Other Cardiovascular History: palpitations and bradycardia (during ) Respiratory History: Reports: Asthma, SOB Gastrointestinal History: Reports: GERD Other Genitourinary History: dysuria, genital herpes YOUTH PASTOR History: Reports: Other YOUTH PASTOR History: dysmenorrhea, abnormal uterine bleeding, menorrhagia Musculoskeletal History: Reports: Back Pain, Chronic, Neck Pain, Chronic Neurological History: Reports: Migraines Psychiatric History: Reports: Anxiety, Depression, OCD, Panic Attack Other Endocrine/Metabolic History: abnormal TSH Immunologic History: Reports: None Oncologic (Cancer) History: Reports: None Dermatologic History: Reports: None Other Dermatologic History: atopic dermatitis - Infectious Disease History Infectious Disease History: Reports: None - Past Surgical History Head Surgeries/Procedures: Reports: None Cardiovascular Surgical History: Reports: None GI Surgical History: Reports: None Female Surgical History: Reports: Hysterectomy Neurological Surgical History: Reports: None Musculoskeletal Surgical History: Reports: None Oncologic Surgical History: Reports: None Social & Family History - Tobacco Use Tobacco Use Status *Q: Never Tobacco User - Caffeine Use Caffeine Use: Reports: Coffee - Recreational Drug Use Recreational Drug Use: No - Living Situation & Occupation Living situation: Reports: ED ROS GENERAL - Review of Systems Review Of Systems: See Below Free Text/Narrative/Comment: In addition to that documented in the HPI above, the additional ROS was obtained: Constitutional: Denies fevers or chills Eyes: Denies vision changes ENMT: Per HPI CV: Denies chest pain Resp: Denies SOB GI: Denies vomiting or diarrhea : Denies painful urination MSK: Denies recent trauma Skin: Denies new rashes Neuro: Denies new numbness or tingling or weakness Endocrine: Denies unexpected weight loss Heme: Denies bleeding disorders - Physical Exam Exam: See Below Text/Narrative:: I have reviewed the triage vital signs Const: Well nourished, well developed, appears stated age Head: No mastoid tenderness or erythema Eyes: Pupils Equal and reactive to light bilaterally, no conjunctival injection HENT: No signs of trauma or swelling, Neck supple without meningismus. Examination of the throat shows no erythema, tonsillar swelling or exudates. uvula is midline. Voice is normal. Ears demonstrate normal tympanic membranes bilaterally. External canals are unremarkable. CV: Regular Rate Rhythm, Warm, well-perfused extremities RESP: Unlabored respiratory effort GI: soft, non-tender, non-distended, no masses MSK: No gross deformities appreciated Skin: Warm, dry. No rashes Neuro: Alert, line fixer II-XII grossly intact. Sensation and motor function of extremities grossly intact. Psych: Appropriate mood and affect. Course - Vital Signs Last Recorded V/S: Last Vital Signs Temp 37.5 C 06/27/21 22:57 Pulse 81 06/27/21 22:57 Resp 20 06/27/21 22:57 BP 128/89 06/27/21 22:57 Pulse Ox 95 06/27/21 22:57 - Orders/Labs/Meds Labs: Laboratory Tests 06/28/21 Range/Units 00:49 SARS-CoV-2 RNA (GÉNESIS) Negative (NEGATIVE) Meds: Medications Discontinued Medications Generic Name Dose Route Start Last Admin Trade Name Willyq PRN Reason Stop Dose Admin Diphenhydramine HCl 25 mg 06/28/21 00:39 06/28/21 00:55 Diphenhydramine 50 Mg/Ml Sdv IVPUSH 06/28/21 00:40 25 mg ONETIME ONE Administration Lactated Ringer's 1,000 mls @ 1,000 mls/hr 06/28/21 00:38 06/28/21 00:51 Ringers, Lactated IV 06/28/21 01:37 1,000 mls/hr .BOLUS ONE Administration Ketorolac Tromethamine 15 mg 06/28/21 00:38 06/28/21 00:55 Ketorolac 15 Mg/Ml Sdv IVPUSH 06/28/21 00:39 15 mg ONETIME ONE Administration Metoclopramide HCl 10 mg 06/28/21 00:38 06/28/21 00:51 Metoclopramide 10 Mg/2 Ml Sdv IVPUSH 06/28/21 00:39 10 mg ONETIME ONE Administration Departure - Departure Time of Disposition: 01:58 Disposition: Home, Self-Care 01 Clinical Impression: Migraine - Discharge Information Referrals: Parish French MD [Primary Care Provider] - Forms: ED Department Discharge Sepsis Event Note (ED) - Focused Exam Vital Signs: Vital Signs Temp Pulse Resp BP Pulse Ox 06/27/21 22:57 37.5 C 81 20 128/89 95 - Assessment/Plan Assessment:: Patient 32-year-old female presents to emergency room with chief complaint of headache. Patient had unremarkable exam. Differential diagnosis for the patient includes subarachnoid hemorrhage, mastoiditis, acute otitis media. Patient evaluation, likely diagnosis of migraine headache. Patient was given pain medication with significant improvement of symptoms on reevaluation. No evidence of neurologic deficit. patient will be discharged with outpatient follow-up. Appropriate return precautions were given. Patient agrees with plan of care.
== END 2021-06-28 02:14 | disposition home or self-care (01) ==
LOC: JD.ED 22:38
DX: G43.909 Migraine, unspecified, not intractable, without status migrainosus (principal); Z20.822 Contact with and (suspected) exposure to COVID-19
CPT/HCPCS: 87635; 96374; 96375; 99283; J1200; J1885; J2765; J7120; U0002

== ENCOUNTER 2021-09-30 16:10 | Emergency (ER) | payer BC, MEDICAID ==
[2021-09-30 16:26] VITALS: BP 130/81; PULSE 78
[2021-09-30] MEDS ORDERED: HYDROmorphone 1 MG/ML Syringe IM ONE (16:35)
== END 2021-09-30 19:26 | disposition home or self-care (01) ==
LOC: JD.ED 16:10
DX: M25.521 Pain in right elbow (principal); M25.511 Pain in right shoulder
CPT/HCPCS: 73030; 73080; 96372; 99283; J1170